=== PATIENT | female | born 1995 | race Caucasian/White ===

== ENCOUNTER 2017-06-11 05:36 | Day surgery (SDC) | payer BC ==
[~2017-06-11] VITALS: Ht 157.5 cm; Wt 49.9 kg
[~2017-06-11 05:36] MED LIST: ENDOCET 5-3251 EACH PO; IBUPROFEN800 MG PO; KEFLEX500 MG PO; MACROBID100 MG PO; MOTRIN800 MG PO; NAPROXEN500 MG PO; OVCON-351 TAB PO; OXYCODONE HCL5 MG PO; PRENATAL TABLE1 EAC3 PO; WELLBUTRIN75 MG PO; ZOFRAN ODT8 MG PO
[2017-06-11 05:50] VITALS: BP 110/69
[2017-06-11 09:20] VITALS: BP 101/57
[2017-06-11 10:12] VITALS: BP 105/66
== END 2017-06-11 10:15 | disposition home or self-care (01) ==
LOC: SDC 05:36
PROC: [UNRECOGNIZED PROCEDURE] (principal; 2017-06-11)
DX: N80.3 Endometriosis of pelvic peritoneum (principal); R10.2 Pelvic and perineal pain; K66.0 Peritoneal adhesions (postprocedural) (postinfection); Z87.891 Personal history of nicotine dependence
CPT/HCPCS: J0131; J1100; J1885; J2250; J2405; J2710; J3010; S0020